=== PATIENT | male | born 1965 | race Two or more races ===

== ENCOUNTER 2018-06-24 15:36 | Inpatient (IN) | payer SELFPAY ==
[~2018-06-24] VITALS: Ht 189.2 cm; Wt 132.5 kg
--- NOTE | 2018-06-24 15:50 | NUR ---
patient brought self in c/o chest pain that started today while sitting. mid sternal and radiating to jaw. patient has associated nausea, chills, and slight sob. c/o increased leg swelling recently without hx of this. states pain still present but lessened. 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
--- NOTE | 2018-06-24 15:56 | NUR ---
dr quintanilla at bedside. per md obtain another ekg at 1610
[2018-06-24] MEDS ORDERED: NITROGLYCERIN 0.4 MG/TAB BOTTLE ONE (15:59)
[2018-06-24] MEDS ORDERED: ASPIRIN 325 MG TABLET ONE (15:59)
[2018-06-24] MEDS ORDERED: ASPIRIN 325 MG TABLET PO ONE (16:00)
[2018-06-24] MEDS ORDERED: NITROGLYCERIN 0.4 MG/TAB BOTTLE SL ONE ×2 (16:00→17:00)
--- NOTE | 2018-06-24 16:10 | NUR ---
#2 nitro given. no resolution of chest pain per patient. bp 133/87. o2 sat 99% with 4l nc
[2018-06-24 16:11] LABS: BASOPHILS # (AUTO) 0.1 /CMM (0.0-0.2); BASOPHILS % (AUTO) 0.8 % (0.0-2.0); HEMATOCRIT 43 % (39-51); HEMOGLOBIN 14.5 g/dL (13.5-17.5); LYMPHOCYTES % (AUTO) 18.3 % (20.0-44.0); MEAN CORPUSCULAR HGB CONC 34 g/dl (31.0-36.0); MEAN CORPUSCULAR VOLUME 93 fL (80-96); MONOCYTES # (AUTO) 0.7 /CMM (0.1-1.30); MONOCYTES % (AUTO) 6.7 % (2.0-12.0); NEUTROPHILS # (AUTO) 8.1 /CMM (1.8-8.9); NEUTROPHILS % (AUTO) 73.2 % (43.0-81.0); PLATELET COUNT (AUTO) 300 /CMM (150-450); WHITE BLOOD COUNT (AUTO) 11.1 K/uL (4.3-11.0)
[2018-06-24 16:14] LABS: CARBON DIOXIDE 27 mmol/L (21-32); CHLORIDE 101 mmol/L (98-107); CREATININE 0.9 mg/dL (0.6-1.3); GLUCOSE 87 mg/dL (74-106); POTASSIUM 4.5 mmol/L (3.5-5.1); SODIUM SERUM 139 mmol/L (136-145); UREA NITROGEN, BLOOD 8 mg/dL (7-18)
--- NOTE | 2018-06-24 16:15 | NUR ---
nitro#3 given persistent cp. bp 140/88
--- NOTE | 2018-06-24 16:44 | NUR ---
notified dr quintanilla after x3 nitro patient cp slightly improved. 08/05. per md give another sl nitro
[2018-06-24 17:05] LABS: D-DIMER 0.37 mg/L(FEU (0.17-0.50)
--- NOTE | 2018-06-24 17:16 | NUR ---
bp again in the 180's and patient states CP returned worse than when he came in. notified dr quintanilla. per obtain another EKG.
[2018-06-24] MEDS ORDERED: MULT-1119 PO (17:26)
[2018-06-24] MEDS ORDERED: WARF7.5T23 PO (17:26)
[2018-06-24] MEDS ORDERED: HEPARIN INFUSION/D5W 500 ML IV PRN (17:30)
[2018-06-24] MEDS ORDERED: HEPARIN SODIUM, PORCINE 5000 UNITS/1 ML VIAL IV ONE (17:30)
[2018-06-24] MEDS ORDERED: HEPARIN INFUSION/D5W 500 ML IV ONE (17:38)
[2018-06-24] MEDS ORDERED: HEPARIN SODIUM, PORCINE 5000 UNITS/1 ML VIAL ONE (17:38)
--- NOTE | 2018-06-24 17:40 | NUR ---
per dr quintanilla give only 4,000u hep bolus not 5,000units. per protocol starting infusion at 1800u/hour
--- NOTE | 2018-06-24 17:44 | NUR ---
[facility] PAGED, INVESTIGATOR CLAIMS
--- NOTE | 2018-06-24 18:05 | NUR ---
CALLED NURSING SUP. FOR TELE BED
--- NOTE | 2018-06-24 18:21 | NUR ---
TELE 310-1
[2018-06-24] MEDS ORDERED: IOHEXOL-350 100 ML VIAL IV ONE (18:30)
--- NOTE | 2018-06-24 18:33 | NUR ---
pt being taken to cta per md order
[2018-06-24] MEDS ORDERED: ACETAMINOPHEN 325 MG TABLET PO PRN (19:00)
[2018-06-24] MEDS ORDERED: MAG HYDROX/AL HYDROX/SIMETH 30 ML UDC PO PRN (19:00)
[2018-06-24] MEDS ORDERED: MAGNESIUM HYDROXIDE 30 ML UDC PO PRN (19:00)
[2018-06-24] MEDS ORDERED: MORPHINE SULFATE INJ 2 MG/ML DISP.SYRIN IV PRN (19:00)
[2018-06-24] MEDS ORDERED: ONDANSETRON HCL/PF 4 MG/2 ML VIAL IVP PRN (19:00)
[2018-06-24] MEDS ORDERED: ZOLPIDEM TARTRATE 5 MG TABLET PO PRN (19:00)
[2018-06-24] MEDS ORDERED: Z GUARD REMEDY 2 OZ OINT TP PRN (19:00)
[2018-06-24] MEDS ORDERED: HYDROCODONE/APAP 5/325MG 1 EACH TABLET PO PRN (19:00)
--- NOTE | 2018-06-24 19:10 | NUR ---
patient returned to cta . stable.
--- NOTE | 2018-06-24 19:40 | NUR ---
RECEIVED PT AND REPORT FROM CRISTIAN DENNIS FOR MOOSE. PT IN BED, AAOX4. NO NOTED DISTRESS. AWAITING PT TRANSFER TO UNIT.
--- NOTE | 2018-06-24 19:41 | NUR ---
report given to blaire gibson for calvin. patient pending transfer to tele bed
--- NOTE | 2018-06-24 20:05 | NUR ---
REPORT GIVEN TO CRISTIAN HYDE. PT GOING TO 310-1. PT BEING WHEELED TO UNIT WITH ACLS PROTOCOL.
--- NOTE | 2018-06-24 20:10 | NUR ---
RN OPENING NOTES RECEIVED REPORT FROM AXLE POLISHER. Pt ARRIVED TO THE FLOOR VIA ER GURNEY. Pt WAS ABLE TO AMBULATE FROM GURNEY TO ROOM BED WITH STEADY GAIT. NO S/S OF ACUTE DISTRESS OR SOB NOTED. Pt IS A/OX4, VERBAL, ABLE TO MAKE NEEDS KNOWN. IV ACCESS ON LAC #18G, SL & R WRIST #22G HEPARIN DRIP INFUSING NOW. HEPARIN DRIP STARTED IN ER. CURRENT HEPARIN INFUSION RATE 1800UN/HR. ON TELE MONITOR SR 66. SAFETY MEASURES IN PLACE. BED LOW, LOCKED, HOB ELEVATED, SIDE RAILS UP, CALL LIGHT AND BEDSIDE TABLE WITH IN REACH. WILL CONTINUE TO MONITOR Pt's CONDITION AND SAFETY THROUGHOUT THE NIGHT.
[2018-06-24 20:20] VITALS: BP 154/87
[2018-06-24 20:30] VITALS: BP 150/87
--- NOTE | 2018-06-24 20:30 | NUR ---
RN NOTES Pt REFUSED HEAD TO TOE SKIN ASSESSMENT. Pt REFUSED TO TAKE OFF HIS PANTS. PER Pt STATEMENT SAID HE HAS NO WOUNDS ON HIS BODY.
--- NOTE | 2018-06-24 20:42 | NUR ---
PT WANTS ECHO TEST DONE TOMORROW.
--- NOTE | 2018-06-24 22:30 | NUR ---
RN NOTES Pt WISHES TO CONTINUE TO SMOKE WHILE AT THE HOSPITAL. EXPLAINED TO Pt THE RISKS OF CONTINUING TO SMOKE ESPECIALLY IN HIS CURRENT CONDITION WITH C/O CP AND BEING ON A HEPARIN DRIP. Pt STILL WISHED TO SMOKE. INFORMED THAT Pt MUST SIGN A SMOKING WAIVER FORM AND THAT HE MUST ADHERE TO THE HOSPITAL's POLICY OF DESIGNATED SMOKING TIMES AND THAT HE MUST ALWAYS BE ACCOMPANIED BY A HOSPITAL STAFF MEMBER FOR SAFETY REASONS. Pt ACKNOWLEDGED THE POLICY AND SIGNED THE SMOKING WAIVER. PLACED SIGNED WAIVER IN CHART.
--- NOTE | 2018-06-24 22:35 | NUR ---
RN NOTES Pt STATED THAT HE WANTED TO GO DOWN FOR A SMOKE. I, THE RN, AND OSCAR STANLEY WENT INSIDE THE Pt's ROOM, & SAW THE Pt SITTING IN THE BED. I ASKED THE Pt IF HE HAD HIS OWN CIGARETTE's SINCE THE HOSPITAL DOES NOT PROVIDE CIGARETTES FOR Pts. Pt POINTED AT HIS BLACK BAG & STATED THAT HE HAD A PACK OF CIGARETTES IN HIS BAG WHICH WAS PLACED ON THE CHAIR, WHICH THE CHAIR WAS LOCATED BY THE WALL. THAT IS WHEN JADEN MOORE WALKED OVER TO THE CHAIR, PICKED UP THE BLACK BAG & OPENED THE BAG WITH THE INTENT TO HELP FIND THE CIGARETTES FOR THE Pt & TO TAKE IT DOWN WITH THEM. THAT IS WHEN Pt YELLED AT JADEN MOORE TO GET AWAY FROM HIS BAG AND YELLED AT HIM THAT HE DID NOT GIVE HIS PERMISSION FOR US TO OPEN HIS BAG. Pt GOT UP AND GRABBED THE BAG ABRUPTLY AWAY FROM JADEN MOORE'S HANDS AND THREW IT DOWN ON HIS BED. JADEN MOORE & I BOTH APOLOGIZED FOR THE MISCOMMUNICATION. WE EXPLAINED THAT BECAUSE HE POINTED AT THE BAG TELLING US THAT IS WHERE HIS CIGARETTES WERE, THAT WAS HIS WAY OF TELLING US TO GET THE CIGARETTES FROM HIS BAG. WE APOLOGIZED AND EXPLAINED TO THE Pt THAT WE HAD NO INTENTION TO GET HIM UPSET. JADEN MOORE ACCOMPANIED Pt DOWN FOR A SMOKE.
--- NOTE | 2018-06-24 23:00 | NUR ---
RN NOTES EXPLAINED TO Pt THAT PER HOSPITAL POLICY WE NEEDED TO KEEP HIS CIGARETTES AND WEAVER TIRE CORD SAFELY AT THE NURSE's STATION SINCE THEY ARE CONSIDERED CONTRABAND. AT FIRST Pt REFUSED AND STATED THAT HE WAS GOING TO KEEP THEM WITH HIM. EXPLAINED AGAIN THAT THE POLICY IS APPLIED FOR EVERY Pt AT THE HOSPITAL DUE TO SAFETY REASONS TO PREVENT Pt's FROM ATTEMPTING TO SMOKE INSIDE THE ROOMS OR BATHROOMS, AND TO KEEP IT FAIR FOR EVERYONE THE RULE IS APPLIED TO EVERYONE. Pt FINALLY COMPLIED, AND AGREED TO KEEP HIS CIGARETTES AND WEAVER TIRE CORD IN A BAG IN THE NURSE's STATION.
--- NOTE | 2018-06-24 23:06 | NUR ---
RN NOTES Pt REFUSED FOR STAFF TO PERSONALLY LOOK INSIDE HIS BLACK BAG TO DOCUMENT HIS BELONGINGS. Pt STATED HE KNOWS WHAT IS INSIDE AND THAT NOBODY NEEDS TO BE LOOKING THROUGH HIS THINGS. EXPLAINED TO Pt THAT IT IS FOR SAFETY REASONS THAT WE NEED TO LOOK THROUGH HIS THINGS TO MAKE SURE THERE ARE NO WEAPONS OR OTHER TYPES OF CONTRABAND IN HIS POSSESSION. Pt STATED THAT HE HAS NO SUCH THINGS IN HIS BAG SO "IT's FINE" AND THAT THERE's NO NEED TO GO LOOKING THROUGH HIS THINGS. EXPLAINED TO Pt AGAIN THAT IT IS FOR SAFETY PURPOSES THAT WE NEED TO KNOW FOR SURE, AND CANT JUST TAKE HIS WORD FOR IT. THEN Pt PROCEEDED TO TAKE OUT THE ITEMS INSIDE HIS BAG, LOOKING VERY AGITATED, AND LAY THEM OUT ON THE BED ONE BY ONE, BUT WOULD NOT LET ANYONE LOOK INSIDE THE BAG HE WAS TAKING OUT THE ITEMS, SAYING "OK THESE ARE ALL IT" AND THEN PLACED THEM BACK INSIDE HIS BAG WITHOUT OPENING THE BAG WIDE OPEN FOR US TO SEE. I INFORMED Pt THAT WE HAVE A LOCKER/SAFE IF HE WISHED TO KEEP HIS PERSONAL BELONGINGS IN THERE INSTEAD TO KEEP IT SAFE, HOWEVER Pt REFUSED AND SAID "NO ONE IS TAKING MY THINGS FROM ME. MY STUFF WILL STAY HERE WITH ME IN THIS ROOM."
[2018-06-25] VITALS: BP 129/91
--- NOTE | 2018-06-25 06:53 | NUR ---
RN NOTES Pt STATED HE NEEDED TO LEAVE THE HOSPITAL DUE TO FAMILY EMERGENCY AND NEEDED TO FLY OUT TO [place]. EXPLAINED THE RISKS OF LEAVING THE HOSPITAL AT THIS TIME. Pt UNDERSTOOD, SAID HE NEEDED TO LEAVE ANYWAYS. SIGNED AMA FORM [facility]. LAC & R WRIST IVs REMOVED AND SECURED WITH GAUZE. HEPARIN DRIP STOPPED.
--- NOTE | 2018-06-25 07:05 | NUR ---
RN CLOSING NOTES Pt LEFT AMA. Pt SIGNED AMA FORMS. ASSISTED BY STAFF TO HOSPITAL LOBBY. Pt LEFT FACILITY SAFELY WITH STEADY GAIT. NO S/S OF ACUTE DISTRESS OR SOB NOTED. ALL IVs REMOVED. ID BAND REMOVED. ALL BELONGINGS TAKEN WITH Pt.
[2018-06-25] MEDS ORDERED: PANTOPRAZOLE 40 MG TABLET.DR PO SCH (07:30)
[2018-06-25] MEDS ORDERED: MULTIVITAMINS,THERAGRAN 1 UDTAB TABLET PO SCH (09:00)
== END 2018-06-25 06:50 | disposition left against medical advice (07) | DRG 206 ==
LOC: ER 15:39 → TELE 18:41
PROVIDERS: ADMIT Student in an Organized Health Care Education/Training Program; ATTEND Student in an Organized Health Care Education/Training Program
DX: M94.0 Chondrocostal junction syndrome [Tietze] (principal); D68.59 Other primary thrombophilia; E66.01 Morbid (severe) obesity due to excess calories; Z86.711 Personal history of pulmonary embolism; Z68.37 Body mass index [BMI] 37.0-37.9, adult; Z79.01 Long term (current) use of anticoagulants; F17.200 Nicotine dependence, unspecified, uncomplicated; Z98.890 Other specified postprocedural states; Z95.828 Presence of other vascular implants and grafts
CPT/HCPCS: 36415; 71045-TC; 80048-TC; 84484-TC; 85025-TC; 85378-TC; 85610-TC; 85730-TC; 87081-TC; G0378; J1644; Q9967